=== PATIENT | female | born 1940 | race Caucasian/White ===

== ENCOUNTER 2020-10-27 21:48 | Emergency (ER) | payer MEDICARE, OTHER ==
[~2020-10-27] VITALS: Ht 157.5 cm; Wt 72.6 kg
--- NOTE | 2020-10-27 21:48 | NUR ---
MD Mcmullen in room to do MSE.
[2020-10-27] MEDS ORDERED: LEVO75TA7 PO (21:57)
[2020-10-27] MEDS ORDERED: RIVA10TA PO (21:58)
[2020-10-27] MEDS ORDERED: LINA290C PO (21:58)
[2020-10-27] MEDS ORDERED: AMLO-212 PO (21:59)
[2020-10-27] MEDS ORDERED: METF-440 PO (21:59)
[2020-10-27] MEDS ORDERED: LEVE100S GT (22:00)
[2020-10-27 22:23] LABS: HEMATOCRIT 40.7 % (31.2-41.9); MEAN CORPUSCULAR HEMOGLOBIN 29.8 uug (24.7-32.8); MEAN CORPUSCULAR VOLUME 90.8 fL (75.5-95.3); PLATELET COUNT (AUTO) 247 K/uL (179-408)
[2020-10-27 22:24] LABS: CREATININE 0.9 mg/dL (0.6-1.3); POTASSIUM 4.1 mmol/L (3.5-5.1)
--- NOTE | 2020-10-27 22:50 | NUR ---
In-and-out catheter cancelled, patient able to provide urine. MD Mcmullen made aware.
--- NOTE | 2020-10-27 22:52 | NUR ---
Room for Tele, #315
--- NOTE | 2020-10-27 22:52 | NUR ---
Candi chun in [facility] - 10/27/20 at 2257 by ISREAL Room for patient will be telemetry 315.
[2020-10-27 22:57] LABS: *BILIRUBIN,URIN NEGATIVE (NEGATIVE); *BLOOD, URINE NEGATIVE (NEGATIVE); *CLARITY,URINE CLEAR (CLEAR); *KETONES,URINE NEGATIVE (NEGATIVE); *UROBILINOGEN,URINE 0.2 E.U./dl (NORMAL); LEUKOCYTE ESTERASE ,URINE NEGATIVE (NEGATIVE); NITRITE, URINE NEGATIVE (NEGATIVE); UGLUCOSE NEGATIVE (NEGATIVE)
[2020-10-27 22:59] LABS: *COLOR,URINE STRAW (YELLOW)
--- NOTE | 2020-10-27 23:22 | NUR ---
[facility] order dispatcher chief states 90 minute to 2 hour ETA for ambulance lemon picker for patient to take patient home.
--- NOTE | 2020-10-28 01:00 | NUR ---
[facility] arrived onscene to transport patient to home. Report given.
[2020-10-28 01:22] VITALS: BP 124/74
--- NOTE | 2020-10-28 01:22 | NUR ---
Patient discharged to home via [facility] unit [facility] in stable condition. Written and verbal after care instructions given to daughter. Daughter verbalizes understanding of instructions. Stressed follow up or return to ER for worsening s/s. Patient secured on ambulance gueli, V/S stable, all discharge paperwork given to daughter, left with all personal belongings.
== END 2020-10-28 01:22 | disposition home or self-care (01) ==
LOC: ER 21:48
DX: T17.908A Unspecified foreign body in respiratory tract, part unspecified causing other injury, initial encounter (principal); X58.XXXA Exposure to other specified factors, initial encounter; Y92.89 Other specified places as the place of occurrence of the external cause; R94.31 Abnormal electrocardiogram [ECG] [EKG]; R13.10 Dysphagia, unspecified
CPT/HCPCS: 36415; 71045; 85025; 93005; A4663; C1758

== ENCOUNTER 2024-11-19 13:42 | Emergency (ER) | payer MEDICARE, OTHER ==
[~2024-11-19] VITALS: Ht 160 cm; Wt 63.5 kg
[~2024-11-19 13:42] MED LIST: AMLO-212 PO; LEVE100S GT; LEVO75TA7 PO; LINA290C PO; METF-440 PO; RIVA10TA PO
[2024-11-19 17:43] VITALS: BP 108/57; TEMP 97.8; O2SAT 95
== END 2024-11-19 14:47 | disposition left against medical advice (07) ==
LOC: ER 13:42
DX: R55 Syncope and collapse (principal); Z79.01 Long term (current) use of anticoagulants; Z79.84 Long term (current) use of oral hypoglycemic drugs; Z86.73 Personal history of transient ischemic attack (TIA), and cerebral infarction without residual deficits; Z88.1 Allergy status to other antibiotic agents; Z86.79 Personal history of other diseases of the circulatory system; Z87.09 Personal history of other diseases of the respiratory system; Z87.448 Personal history of other diseases of urinary system; Z87.42 Personal history of other diseases of the female genital tract; Z87.39 Personal history of other diseases of the musculoskeletal system and connective tissue; Z87.19 Personal history of other diseases of the digestive system
CPT/HCPCS: A4606; A4663